=== PATIENT | male | born 1980 | race Caucasian/White ===

== ENCOUNTER 2020-03-28 08:19 | Outpatient (CLI) | payer OTHER ==
[2020-03-28] MEDS ORDERED: Magnevist 469MG/ML 20 ML VIAL ONE (13:19)
--- NOTE | 2020-03-28 14:39 | MRI ---
MRI ABDOMEN WITH AND WITHOUT CONTRAST: 03/28/20 HISTORY: Abdominal pain. COMPARISON: CT abdomen and pelvis 03/18/20. FINDINGS: No pericardial effusion. No significant pleural fluid. No intrahepatic or extrahepatic biliary dilata tion. No hydronephrosis. Spleen is unremarkable as well as the pancreas. Background bone marrow signal is normal. No significant hepatic steatosis. In the liver in hepatic segment VIII is a very small 4 mm flash filling arterial enhancing mass likel y a flash filling hemangioma. Multiple scattered cysts throughout the liver. In hepatic segment IVb is a T2 hyperintense mass with some minimal faint peripheral centripetal enhancement which does not f ill in on the tendon and delayed phase. This has a mean characteristic of a sclerosing hemangioma. No definite solid internal enhancement. Gallbladder is normal. Portal vein is patent. IMPRESSION: 1. 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 No abnormal solid enhancing mass. 2. Findings a 4-5 mm flash filling hemangioma hepatic segment VIII although too small to fully c haracterize. 3. No acute inflammatory process in the abdomen. POS: [facility]
== END 2020-03-28 08:20 | disposition home or self-care (01) ==
LOC: BICMRI 08:19
PROVIDERS: ATTEND Family Medicine
DX: R10.9 Unspecified abdominal pain (principal); D18.03 Hemangioma of intra-abdominal structures; R93.5 Abnormal findings on diagnostic imaging of other abdominal regions, including retroperitoneum
CPT/HCPCS: 74183; A9579